=== PATIENT | male | born 1935 | race African-American/Black ===

== ENCOUNTER 2017-11-24 05:19 | Day surgery (SDC) | payer MEDICARE, MEDICAID ==
[2017-11-24] VITALS (8 sets, daily range): BP systolic 126–139; BP diastolic 71–88
[~2017-11-24] VITALS: Ht 177.8 cm; Wt 82.6 kg
[2017-11-24] MEDS ORDERED: AMLODIPINE BESYL5 MG ORAL (06:05)
[2017-11-24] MEDS ORDERED: POTASSIUM 25 M25 ME1 PO (06:05)
[2017-11-24] MEDS ORDERED: GABAPENTIN800 MG ORAL (06:05)
[2017-11-24] MEDS ORDERED: ATORVASTATIN CA20 MG ORAL (06:05)
[2017-11-24] MEDS ORDERED: Lidocaine 2% MPF 5ml Vial INJ ONE ×3 (06:36→07:38)
[2017-11-24] MEDS ORDERED: Bupivacaine 0.5% Inj 30 ml vial INJ ONE (06:36)
[2017-11-24] MEDS ORDERED: Lidocaine 1% MPF 10mg/ml 5ml ONE (06:46)
[2017-11-24] MEDS ORDERED: Propofol 200mg/20ml IV ONE (06:46)
[2017-11-24] MEDS ORDERED: fentaNYL 100 mcg/2 mL IV ONE (06:46)
[2017-11-24] MEDS ORDERED: Metoclopramide 10mg/2ml Inj ONE (06:52)
[2017-11-24] MEDS ORDERED: LR 1000ml ONE (07:00)
--- NOTE | 2017-11-24 07:05 | Anethesia Preoperative Eval ---
Anesthesia Pre-op PMH/ROS General Date of Evaluation: Nov 24, 2017 Time of Evaluation: 07:00 Anesthesiologist: nuno ASA Score: ASA 2 Mallampati Score Class I : Soft palate, uvula, fauces, pillars visible Class II: Soft palate, uvula, fauces visible Class III: Soft palate, base of uvula visible Class IV: Only hard plate visible Mallampati Classification: Class II Surgeon: hemant Diagnosis: phimosis Surgical Procedure: circumcision Anesthesia History: none Family History: no anesthesia problems Allergies: Coded Allergies: No Known Allergies (Unverified , 11/24/17) Medications: see eMAR Patient NPO?: Yes NPO Date: Nov 23, 2017 NPO Time: 23:59 Past Medical History Cardiovascular: Reports: HTN Pulmonary: Denies: asthma, COPD, KAYA, other Gastrointestinal/Genitourinary: Denies: GERD, CRI, ESRD, other Neurologic/Psychiatric: Denies: dementia, CVA, depression/anxiety, TIA, other Endocrine: Denies: DM, hypothyroidism, steroids, other Hematology/Immune: Denies: anemia, DVT, bleeding disorder, other Musculoskeletal/Integumentary: Denies: OA, RA, DJD, DDD, edema, other PSxH Narrative: hip surgery - denies complications Anesthesia Pre-op Phys. Exam Physician Exam Last Vital Signs Date Time Temp Pulse Resp B/P (MAP) Pulse Ox O2 Delivery O2 Flow Rate FiO2 11/24/17 06:07 Room Air 11/24/17 05:58 97.9 69 18 139/79 100 97.9 Constitutional: NAD Neurologic: CN 2-12 intact Cardiovascular: RRR Respiratory: CTA Gastrointestinal: S/NT/ND Airway Exam Mallampati Classification 2 Mallampati Score: Class II MO: limited Neck: limited ROM TMD: 3fb ROM: limited Dentures: upper, lower Anesthesia Pre-op A/P Studies Pre-op Studies: EKG - sr Risk Assessment & Plan Plan: general LMA Pre-Antibiotics Drug: Jennifer Coates CRNA Nov 24, 2017 07:05
--- NOTE | 2017-11-24 07:05 | Pre-Procedure Note/Attestation ---
Pre-Procedure Note/Attestation Complete Prior to Procedure Planned Procedure: not applicable Procedure Narrative: circumcision Indications for Procedure Pre-Operative Diagnosis: phimosis Attestation I attest that I discussed the nature of the procedure; its benefits; risks and complications; and alternatives (and the risks and benefits of such alternatives ), prior to the procedure, with the patient (or the patient's legal teleservices representative). I attest that, if there was a reasonable possibility of needing a blood transfusion, the patient (or the patient's legal teleservices representative) was given the [facility] standardized written summary, pursuant to the Brandon [place]aga Blood Safety Act ([place] Health and Safety Code # 1645, as amended). I attest that I re-evaluated the patient just prior to the surgery and that there has been no change in the patient's H&P, except as documented below: n/a CAROLE MCNULTY Nov 24, 2017 07:05
--- NOTE | 2017-11-24 07:06 | Urology Progress Note ---
Assessment/Plan Assessment/Plan phimosis plan circ d/w pt and his daughter extensively Subjective Allergies: Coded Allergies: No Known Allergies (Unverified , 11/24/17) Subjective for circ today Objective Last 24 Hour Vital Signs Date Time Temp Pulse Resp B/P (MAP) Pulse Ox O2 Delivery O2 Flow Rate FiO2 11/24/17 06:07 Room Air 11/24/17 05:58 97.9 69 18 139/79 100 Room Air 97.9 Height (Feet): 5 Height (Inches): 10.00 Weight (Pounds): 182 Objective phimosis CAROLE MCNULTY Nov 24, 2017 07:06
[2017-11-24] MEDS ORDERED: fentaNYL 100 mcg/2 mL IV PRN (07:15)
--- NOTE | 2017-11-24 08:23 | Brief Operative Note ---
Immediate Post Operative Note Operative Note Pre-op Diagnosis: phimosis Procedure: circumcision Post-op Diagnosis: same as pre-op Surgeon: hemant Anesthesiologist: shirlene Anesthesia: general Specimen: yes Complications: none Condition: stable Fluids: NS Estimated Blood Loss: minimal Implant(s) used?: No CAROLE MCNULTY Nov 24, 2017 08:23
--- NOTE | 2017-11-24 09:52 | Immediate Post-Op Evaluation ---
Immediate Post-Op Evalulation Immediate Post-Op Evalulation Procedure: circumcision Date of Evaluation: Nov 24, 2017 Time of Evaluation: 08:10 IV Fluids: 400 Estimated Blood Loss: 5 Blood Pressure Systolic: 155 Blood Pressure Diastolic: 80 Pulse Rate: 65 Respiratory Rate: 14 O2 Sat by Pulse Oximetry: 100 Temperature (Fahrenheit): 97.7 Pain Score (1-10): 0 Nausea: No Vomiting: No Complications none Patient Status: awake, reacts, patent Hydration Status: adequate Drug: ancef Given Within 1 Hr of Incision: Yes Time Given: 07:20 Jennifer Gambino CRNA Nov 24, 2017 09:52
--- NOTE | 2017-11-24 10:40 | 48 Hour Post Anesthesia Eval ---
Post Anesthesia Evaluation Procedure: circumcision Date of Evaluation: Nov 24, 2017 Time of Evaluation: 10:39 Blood Pressure Systolic: 131 0: 71 Pulse Rate: 65 Respiratory Rate: 14 O2 Sat by Pulse Oximetry: 99 Airway: patent Nausea: No Vomiting: No Hydration Status: adequate Cardiopulmonary Status: stable Mental Status/LOC: patient returned to baseline Follow-up Care/Observations: na Post-Anesthesia Complications: none Follow-up care needed: N/A Jennifer Gambino SUBSTANCE [employer]SE SERVICES DIRECTOR Nov 24, 2017 10:40
--- NOTE | 2017-11-25 13:45 | Operative Note - Dictated ---
DATE OF OPERATION: 11/24/2017 PREOPERATIVE DIAGNOSIS: Severe phimosis. POSTOPERATIVE DIAGNOSES: Severe phimosis and also balanitis. PROCEDURE PERFORMED: Circumcision. OPERATING SURGEON: Woody Navarro M.D. ANESTHESIOLOGIST: Jennifer Gambino CRNA. ANESTHESIA: General. INDICATION FOR PROCEDURE: This is a pleasant 82-year-old male. He has a history of severe phimosis with a pinpoint opening and difficulty passing his urine and he requested to have a circumcision as such he was scheduled for the above procedure. Possible risks and complications of bleeding, infection, anesthesia, scarring, cosmetic results, etc, were discussed with the patient and his daughter and he was scheduled for the above. FINDINGS: The patient had a severe pinpoint phimosis. He had underlying balanitis. Circumcision was done. PROCEDURE IN DETAIL: Informed consent was obtained from the patient. The patient was brought to the operative room and then placed in supine position. After successful general anesthesia was induced, the patient's genital area was then prepped and draped in usual sterile fashion. Preoperative IV antibiotics were administered. Time-out was performed. At this point, a penile block was given with a solution of plain 2% lidocaine and 0.5% Marcaine. As the patient has severe pinpoint phimosis, this was initially opened with a dorsal slit, so I can expose the glans. The inside of the glans was then re-prepped with Betadine. There was significant inflammation inside. At this point, a circumferential incision was made around the foreskin and this was incised with a knife. The foreskin was retracted back and an incision was made proximal to the hinton and the excess foreskin was then excised. All bleeding sites were controlled using electrocautery. Good hemostasis was obtained. The two skin edges were then reapproximated using multiple 2-0 chromic interrupted sutures including U-stitch at the frenulum. Xeroform gauze as well as a Kerlix was placed snug. The patient was awakened, was taken to the recovery room in stable condition. Blood loss was minimal. No complication. Woody Navarro M.D. DR: PAUL JOB#: [id number] CC:
== END 2017-11-24 10:10 | disposition home or self-care (01) ==
LOC: SUR 05:19
DX: N47.1 Phimosis (principal); N48.1 Balanitis; I10 Essential (primary) hypertension; E78.5 Hyperlipidemia, unspecified; I25.10 Atherosclerotic heart disease of native coronary artery without angina pectoris; J44.9 Chronic obstructive pulmonary disease, unspecified
CPT/HCPCS: 54161; J0690; J2405; J2704; J2765; J3010; J3490; 94003; 94150